=== PATIENT | female | born 1980 | race Hispanic/Latino ===

== ENCOUNTER 2021-11-14 22:13 | Emergency (ER) | payer OTHER ==
[~2021-11-14] VITALS: Ht 162.6 cm; Wt 72.6 kg
[2021-11-14 22:49] LABS: BASOPHILS % (AUTO) 0.9 % (0.0-5.0); EOSINOPHILS % (AUTO) 2.2 % (0.0-8.0); HEMATOCRIT 41.8 % (36-48); LYMPHOCYTES % (AUTO) 15.5 % (21.0-51.0); MEAN CORPUSCULAR HGB CONC 32.3 g/dL (32.0-36.0); MEAN CORPUSCULAR VOLUME 92.9 fL (79-99); NEUTROPHILS % (AUTO) 74.8 % (40.0-77.0); PLATELET COUNT (AUTO) 275 K/uL (130-400); WHITE BLOOD COUNT (AUTO) 9.1 K/uL (4.8-10.8)
[2021-11-14] MEDS: 0.9% NACL 500ML IV.SOLN 500 ML IV SCH ×2 (22:54→22:59)
[2021-11-14 22:55] VITALS: BP 131/59
[2021-11-14 23:00] LABS: CREATININE 0.6 mg/dL (0.5-1.5)
[2021-11-14] MEDS ORDERED: KETOROLAC 30MG VIAL (30MG/ML) IV ONE (23:00)
[2021-11-14] MEDS ORDERED: PROMETHAZINE HCL 25 MG/ML 1ML AMPULE IM ONE (23:00)
[2021-11-14] MEDS ORDERED: CYCLOBENZAPRINE HCL 10 MG TABLET PO ONE (23:00)
[2021-11-14 23:05] LABS: ALBUMIN 3.7 g/dL (3.5-5.0); BILIRUBIN,TOTAL 0.3 mg/dL (0.2-1.0); TOTAL PROTEIN, SERUM 7.9 g/dL (6.0-8.3)
[2021-11-14] MEDS ORDERED: RIZA10TA23 PO (23:43)
[2021-11-14] MEDS ORDERED: CYCL10TA16 PO (23:43)
[2021-11-14] MEDS ORDERED: NAPR-1180 PO (23:43)
== END 2021-11-14 23:55 | disposition home or self-care (01) ==
LOC: EDH 22:13
DX: G43.109 Migraine with aura, not intractable, without status migrainosus (principal); M19.90 Unspecified osteoarthritis, unspecified site; F32.9 Major depressive disorder, single episode, unspecified; Z90.710 Acquired absence of both cervix and uterus; Z98.890 Other specified postprocedural states; Z91.041 Radiographic dye allergy status; Z88.5 Allergy status to narcotic agent; Z88.8 Allergy status to other drugs, medicaments and biological substances
CPT/HCPCS: 36415; 80053; 85025; 96361; 96372; 96374; 99284; J1885 ×2; J2550 ×2; J7040 ×2

== ENCOUNTER 2023-03-26 17:16 | Emergency (ER) | payer OTHER ==
[~2023-03-26] VITALS: Ht 162.6 cm; Wt 69.9 kg
[~2023-03-26 17:16] MED LIST: CYCL10TA16 PO; NAPR-1180 PO; RIZA-7 PO
[2023-03-26] MEDS ORDERED: IBUP-2070 PO (18:03)
== END 2023-03-26 18:42 | disposition home or self-care (01) ==
LOC: EDH 17:16
DX: S00.83XA Contusion of other part of head, initial encounter (principal); M19.90 Unspecified osteoarthritis, unspecified site; Z88.5 Allergy status to narcotic agent; Z91.040 Latex allergy status; F41.9 Anxiety disorder, unspecified; Z79.899 Other long term (current) drug therapy; Z90.710 Acquired absence of both cervix and uterus; Z98.890 Other specified postprocedural states; Y08.89XA Assault by other specified means, initial encounter; Y93.89 Activity, other specified; Y92.89 Other specified places as the place of occurrence of the external cause; Y99.8 Other external cause status